=== PATIENT | female | born 1990 | race Caucasian/White ===

== ENCOUNTER 2019-02-11 11:58 | Emergency (ER) | payer OTHER ==
[~2019-02-11] VITALS: Ht 165.1 cm; Wt 77.1 kg
== END 2019-02-11 15:46 | disposition home or self-care (01) ==
LOC: ER 11:58
DX: O20.8 Other hemorrhage in early pregnancy (principal); Z34.01 Encounter for supervision of normal first pregnancy, first trimester

== ENCOUNTER 2019-02-13 11:06 | Outpatient (CLI) | payer OTHER | END 2019-02-13 11:11 | disposition home or self-care (01) | LOC: LAB 11:06 | DX: O20.0 Threatened abortion (principal) ==

== ENCOUNTER 2019-02-15 07:43 | Outpatient (CLI) | payer OTHER | END 2019-02-15 07:55 | disposition home or self-care (01) | LOC: LAB 07:43 | DX: O03.9 Complete or unspecified spontaneous abortion without complication (principal) ==

== ENCOUNTER 2020-09-10 14:30 | Inpatient (IN) | payer OTHER ==
[~2020-09-10] VITALS: Ht 165.1 cm; Wt 4.1 kg
[2020-10-01] MEDS ORDERED: PRENATAL TABLE1 EAC2 PO (03:43)
[2020-10-04] MEDS ORDERED: KETO10TA2 PO (10:32)
== END 2020-10-04 13:44 | disposition home or self-care (01) | DRG 788 ==
LOC: OB/GYN 09-29 14:30 → LDR 10-01 02:06 → OB/GYN 10-01 02:06 → O/R 10-01 13:55 → OB/GYN 10-01 14:22
PROVIDERS: ADMIT Obstetrics & Gynecology Maternal & Fetal Medicine; ATTEND Obstetrics & Gynecology Maternal & Fetal Medicine
PROC: 3E033VJ Introduction of Other Hormone into Peripheral Vein, Percutaneous Approach (ICD-10-PCS; 2020-10-01)
PROC: 4A1HXFZ Monitoring of Products of Conception, Cardiac Rhythm, External Approach (ICD-10-PCS; 2020-10-01)
PROC: 10D00Z1 Extraction of Products of Conception, Low, Open Approach (ICD-10-PCS; principal; 2020-10-01 12:00)
DX: O62.1 Secondary uterine inertia (principal); O64.0XX0 Obstructed labor due to incomplete rotation of fetal head, not applicable or unspecified; O48.0 Post-term pregnancy; Z3A.40 40 weeks gestation of pregnancy; Z37.0 Single live birth; Z20.822 Contact with and (suspected) exposure to COVID-19

== ENCOUNTER 2020-09-26 08:22 | Outpatient (CLI) | payer OTHER | END 2020-09-26 09:21 | disposition home or self-care (01) | LOC: NST 08:22 | PROVIDERS: ATTEND Obstetrics & Gynecology | DX: Z34.83 Encounter for supervision of other normal pregnancy, third trimester (principal) ==

== ENCOUNTER 2020-09-29 11:26 | Outpatient (CLI) | payer OTHER | END 2020-09-29 12:17 | disposition home or self-care (01) | LOC: NST 11:26 | PROVIDERS: ATTEND Obstetrics & Gynecology | DX: Z34.83 Encounter for supervision of other normal pregnancy, third trimester (principal) ==

== ENCOUNTER 2022-07-21 09:00 | Day surgery (SDC) | payer OTHER ==
[~2022-07-21 09:00] MED LIST: KETO10TA2 PO; PRENATAL TABLE1 EAC2 PO
== END 2022-07-21 18:55 | disposition home or self-care (01) ==
LOC: CIR.AMB 09:00
PROVIDERS: ATTEND Obstetrics & Gynecology
DX: O02.1 Missed abortion (principal); O72.2 Delayed and secondary postpartum hemorrhage; Z20.822 Contact with and (suspected) exposure to COVID-19